=== PATIENT | male | born 1945 | race Hispanic/Latino ===

== ENCOUNTER 2019-01-21 12:30 | Emergency (ER) | payer OTHER ==
[2019-01-21] MEDS ORDERED: KETOROLAC TROMETHAMINE 15MG/ML ONE (13:24)
[2019-01-21] MEDS ORDERED: DIAZEPAM 5 MG TABLET ONE (13:24)
[2019-01-21] MEDS ORDERED: LIDOCAINE 5% TOPICAL PATCH TP ONE (13:24)
[2019-01-21 13:45] LABS: BASOPHILS % (AUTO) 0.9 % (0.0-5.0); EOSINOPHILS % (AUTO) 1.2 % (0.0-8.0); HEMATOCRIT 47.8 % (42-54); LYMPHOCYTES % (AUTO) 16.9 % (21.0-51.0); MEAN CORPUSCULAR HEMOGLOBIN 32.7 pg (27.0-33.0); MEAN CORPUSCULAR VOLUME 96.2 fL (79-99); MONOCYTES % (AUTO) 4.8 % (3.0-13.0); NEUTROPHILS % (AUTO) 76.2 % (40.0-77.0); PLATELET COUNT (AUTO) 250 K/uL (130-400); RED BLOOD CELL COUNT(AUTO) 4.97 MIL/uL (4.50-6.20); WHITE BLOOD COUNT (AUTO) 5.9 K/uL (4.8-10.8)
[2019-01-21 13:57] LABS: INR 0.96 (0.85-1.15); PARTIAL THROMBOPLASTIN TIME 27.9 SEC (26.3-35.5); PROTHROMBIN TIME 10.1 SEC (9.6-11.6)
[2019-01-21 14:02] LABS: ALBUMIN 4.2 g/dL (3.5-5.0); BILIRUBIN,TOTAL 0.7 mg/dL (0.2-1.0); CREATININE 1.2 mg/dL (0.5-1.5); POTASSIUM 4.3 mmol/L (3.5-5.1)
[2019-01-21 14:36] LABS: APPEARANCE,URINE Clear (CLEAR); BILIRUBIN,URINE Negative (NEGATIVE); COLOR,URINE Yellow (YELLOW); GLUCOSE, URINE (UA) Negative (NEGATIVE); KETONES,URINE 15 mg/dL (NEGATIVE); LEUKOCYTE ESTERASE ,URINE Negative (NEGATIVE); NITRATE,URINE Negative (NEGATIVE); OCCULT BLOOD,URINE Negative (NEGATIVE); PH,URINE 5.5 (5.0-8.0); PROTEIN,URINE Negative (NEGATIVE)
[2019-01-21 14:50] LABS: BACTERIA,URINE Few /HPF (None Seen); MUCUS,URINE Many LPF (None Seen)
== END 2019-01-21 14:34 | disposition home or self-care (01) ==
LOC: EDH 12:30
DX: M54.16 Radiculopathy, lumbar region (principal); F43.10 Post-traumatic stress disorder, unspecified; Z87.891 Personal history of nicotine dependence
CPT/HCPCS: 36415; 74176; 80053; 81001; 82550; 84484; 85025; 85610; 85730; 96374; 99285; J1885

== ENCOUNTER 2019-10-30 17:32 | Inpatient (IN) | payer OTHER ==
[~2019-10-30] VITALS: Ht 165.1 cm; Wt 80.2 kg
[2019-10-30] VITALS (9 sets, daily range): BP systolic 117–145; BP diastolic 83–100
[2019-10-30] MEDS ORDERED: ASPIRIN 325 MG TABLET ONE (17:47)
[2019-10-30 17:58] LABS: BASOPHILS % (AUTO) 0.4 % (0.0-5.0); EOSINOPHILS % (AUTO) 1.1 % (0.0-8.0); HEMATOCRIT 47.2 % (42-54); LYMPHOCYTES % (AUTO) 28.1 % (21.0-51.0); MEAN CORPUSCULAR HEMOGLOBIN 30.5 pg (27.0-33.0); MEAN CORPUSCULAR HGB CONC 33.3 g/dL (32.0-36.0); MEAN CORPUSCULAR VOLUME 91.8 fL (79-99); MONOCYTES % (AUTO) 12.6 % (3.0-13.0); NEUTROPHILS % (AUTO) 57.4 % (40.0-77.0); PLATELET COUNT (AUTO) 422 K/uL (130-400); RED BLOOD CELL COUNT(AUTO) 5.14 MIL/uL (4.50-6.20); RED CELL DISTRIBUTION WIDTH 12.8 % (11.0-15.5); WHITE BLOOD COUNT (AUTO) 8.1 K/uL (4.8-10.8)
[2019-10-30] MEDS ORDERED: TICAGRELOR 90 MG TABLET ONE (18:06)
[2019-10-30] MEDS ORDERED: HEPARIN SODIUM 5000UNIT/ML 1ML VIAL ONE (18:06)
[2019-10-30 18:09] LABS: CREATININE 1.1 mg/dL (0.5-1.5); POTASSIUM 3.4 mmol/L (3.5-5.1)
[2019-10-30 18:12] LABS: INR 0.97 (0.85-1.15); PARTIAL THROMBOPLASTIN TIME 26.3 SEC (26.3-35.5); PROTHROMBIN TIME 10.5 SEC (9.6-11.6)
[2019-10-30 18:13] LABS: ALBUMIN 2.8 g/dL (3.5-5.0); BILIRUBIN,TOTAL 0.6 mg/dL (0.2-1.0); TOTAL PROTEIN, SERUM 8.2 g/dL (6.0-8.3)
[2019-10-30] MEDS ORDERED: HEPARIN SODIUM 1000UNIT/ML 10ML VIAL ONE (18:13)
[2019-10-30] MEDS ORDERED: NITROGLYCERIN 2 MG/VIAL VIAL IV ONE (18:13)
[2019-10-30] MEDS ORDERED: LIDOCAINE PF 2% 5ML ABBOJECT ONE (18:13)
[2019-10-30] MEDS ORDERED: NICARDIPINE HCL 25 MG/10 ML ML IV ONE (18:13)
[2019-10-30] MEDS ORDERED: ATROPINE SULFATE 0.1 MG/ML 10 ML SYG IVP ONE (18:13)
[2019-10-30] MEDS ORDERED: FENTANYL CITRATE PF 50 MCG/1 ML 2ML VIAL ONE (18:14)
[2019-10-30] MEDS ORDERED: DOPAMINE HCL 400 MG/D5%-WATER 0 ML IV ONE (18:14)
[2019-10-30] MEDS ORDERED: MIDAZOLAM HCL 1 MG/ML 2ML VIAL ONE (18:14)
[2019-10-30] MEDS ORDERED: LIDOCAINE HCL 2% 20ML ONE (18:14)
[2019-10-30] MEDS ORDERED: IOHEXOL 350 MG/ML 100ML INFUS..BTL IV ONE (18:14)
[2019-10-30 18:46] LABS: B-TYPE NATRIURETIC PEPTIDE 44 pg/mL (0-100)
[2019-10-30] MEDS ORDERED: EPTIFIBATIDE 2 MG/ML 10 ML VIAL IVP ONE (18:52)
[2019-10-30] MEDS ORDERED: METOPROLOL TARTRATE 25 MG TAB PO SCH (21:00)
[2019-10-30] MEDS: ATORVASTATIN CALCIUM 40 MG TABLET PO SCH (21:01)
[2019-10-30] MEDS: TICAGRELOR 90 MG TABLET PO SCH (21:02)
[2019-10-30] MEDS ORDERED: POTASSIUM CHLORIDE 20 MEQ ERTAB PO ONE (21:20)
[2019-10-30] MEDS: POTASSIUM CHLORIDE 20 MEQ ERTAB PO SCH (21:30)
[2019-10-30] MEDS ORDERED: ONDANSETRON HCL 4 MG/2 ML VIAL IV PRN (22:15)
[2019-10-30] MEDS ORDERED: ACETAMINOPHEN 325 MG TAB PO PRN ×2 (22:15)
[2019-10-30] MEDS ORDERED: ERGOCALCIFEROL (VITAMIN D2) 50,000 UNIT CAPSULE PO ONE (22:15)
[2019-10-30] MEDS ORDERED: TEMAZEPAM 7.5 MG CAPSULE PO ONE ×2 (23:00→23:02)
[2019-10-31] VITALS (19 sets, daily range): BP systolic 105–138; BP diastolic 70–94
[2019-10-31 04:53] LABS: HEMATOCRIT 45.2 % (42-54); MEAN CORPUSCULAR HGB CONC 33.2 g/dL (32.0-36.0); MEAN CORPUSCULAR VOLUME 93.4 fL (79-99); RED BLOOD CELL COUNT(AUTO) 4.84 MIL/uL (4.50-6.20); RED CELL DISTRIBUTION WIDTH 13.1 % (11.0-15.5); WHITE BLOOD COUNT (AUTO) 7.9 K/uL (4.8-10.8)
[2019-10-31 05:35] LABS: CREATININE 0.9 mg/dL (0.5-1.5)
[2019-10-31] MEDS ORDERED: METOPROLOL TARTRATE 1 MG/ML 5ML VIAL IV ONE (05:52)
[2019-10-31] MEDS ORDERED: METOPROLOL TARTRATE 1 MG/ML 5ML VIAL IV SCH (06:00)
[2019-10-31] MEDS: ASCORBIC ACID 500 MG TAB PO SCH (07:39)
[2019-10-31] MEDS: FAMOTIDINE/PF 20 MG/2 ML VIAL IV SCH ×2 (07:39→22:18)
[2019-10-31] MEDS: ASPIRIN 81MG TAB.CHEW PO SCH (07:40)
[2019-10-31] MEDS: TICAGRELOR 90 MG TABLET PO SCH ×2 (07:40→22:18)
[2019-10-31] MEDS: ZINC SULFATE 220 CAPSULE PO SCH (07:40)
[2019-10-31] MEDS ORDERED: METOPROLOL TARTRATE 25 MG TAB PO SCH (09:00)
[2019-10-31] MEDS: POTASSIUM CHLORIDE 20 MEQ ERTAB PO SCH (21:30)
[2019-10-31] MEDS: METOPROLOL TARTRATE 50 MG TAB PO SCH (22:18)
[2019-10-31] MEDS: ATORVASTATIN CALCIUM 40 MG TABLET PO SCH (22:18)
[2019-11-01] VITALS: BP 106/56
[2019-11-01 04:15] VITALS: BP 106/67
[2019-11-01] MEDS ORDERED: TICA90TA PO (07:15)
[2019-11-01] MEDS ORDERED: METO50 PO (07:15)
[2019-11-01] MEDS ORDERED: ATOR40TA69 PO (07:15)
[2019-11-01] MEDS ORDERED: ASPI-1005 PO (07:15)
[2019-11-01] MEDS ORDERED: LOSA25TA41 PO (07:27)
[2019-11-01 07:50] VITALS: BP 119/82
[2019-11-01] MEDS: TICAGRELOR 90 MG TABLET PO SCH (09:15)
[2019-11-01] MEDS: METOPROLOL TARTRATE 50 MG TAB PO SCH (09:15)
[2019-11-01] MEDS: ASPIRIN 81MG TAB.CHEW PO SCH (09:15)
[2019-11-01] MEDS: ASCORBIC ACID 500 MG TAB PO SCH (09:15)
[2019-11-01] MEDS: ZINC SULFATE 220 CAPSULE PO SCH (09:16)
[2019-11-01] MEDS: FAMOTIDINE/PF 20 MG/2 ML VIAL IV SCH ×2 (09:20→09:26)
== END 2019-11-01 10:00 | disposition home or self-care (01) | DRG 246 ==
LOC: EDH 17:32 → EDHIP 20:15 → DAHIP 21:28
PROVIDERS: ADMIT Family Medicine; ATTEND Family Medicine
PROC: 027034Z Dilation of Coronary Artery, One Artery with Drug-eluting Intraluminal Device, Percutaneous Approach (ICD-10-PCS; principal; 2019-10-30)
PROC: 02C03ZZ Extirpation of Matter from Coronary Artery, One Artery, Percutaneous Approach (ICD-10-PCS; 2019-10-30)
PROC: 4A023N7 Measurement of Cardiac Sampling and Pressure, Left Heart, Percutaneous Approach (ICD-10-PCS; 2019-10-30)
PROC: B2111ZZ Fluoroscopy of Multiple Coronary Arteries using Low Osmolar Contrast (ICD-10-PCS; 2019-10-30)
DX: I21.09 ST elevation (STEMI) myocardial infarction involving other coronary artery of anterior wall (principal); U07.1 COVID-19; I50.21 Acute systolic (congestive) heart failure; E78.5 Hyperlipidemia, unspecified; E11.9 Type 2 diabetes mellitus without complications; F41.9 Anxiety disorder, unspecified; I25.5 Ischemic cardiomyopathy; I11.0 Hypertensive heart disease with heart failure; Z98.61 Coronary angioplasty status; Z80.9 Family history of malignant neoplasm, unspecified; Z83.3 Family history of diabetes mellitus; Z82.49 Family history of ischemic heart disease and other diseases of the circulatory system
CPT/HCPCS: 36415; 71045; 80048; 80053; 80061; 82550; 82728; 83615; 83880; 84484; 85025; 85027; 85347; 85610; 85730; 87486; 87581; 87633; 87798; 93005; 93306; 93454; 99156; 99157; 99291; C1725; C1887; C1894; C9606; G0378; J0461; J1265; J1327; J1644; J2001; J2250; J3010; J3490; Q9967; U0003

== ENCOUNTER 2020-01-19 20:02 | Observation (INO) | payer OTHER ==
[~2020-01-19 20:02] MED LIST: ASPI-1005 PO; ASPIRIN 325 MG TABLET ONE; ATOR40TA69 PO; LOSA25TA41 PO; METO50 PO; TICA90TA PO
[2020-01-19] MEDS ORDERED: ASPIRIN 325 MG TABLET ONE (20:14)
[2020-01-19] MEDS ORDERED: NITROGLYCERIN 0.4 MG SL TAB SL ONE (20:14)
[2020-01-19 20:17] LABS: BASOPHILS % (AUTO) 0.7 % (0.0-5.0); LYMPHOCYTES % (AUTO) 11.6 % (21.0-51.0); MEAN CORPUSCULAR HEMOGLOBIN 31.6 pg (27.0-33.0); MEAN CORPUSCULAR HGB CONC 32.6 g/dL (32.0-36.0); MEAN CORPUSCULAR VOLUME 97.1 fL (79-99); MONOCYTES % (AUTO) 4.4 % (3.0-13.0); PLATELET COUNT (AUTO) 245 K/uL (130-400); RED BLOOD CELL COUNT(AUTO) 4.43 MIL/uL (4.50-6.20); RED CELL DISTRIBUTION WIDTH 14.4 % (11.0-15.5); WHITE BLOOD COUNT (AUTO) 10.4 K/uL (4.8-10.8)
[2020-01-19 20:30] LABS: INR 0.92 (0.85-1.15); PARTIAL THROMBOPLASTIN TIME 26.1 SEC (26.3-35.5)
[2020-01-19 20:31] LABS: CREATININE 1.3 mg/dL (0.5-1.5); POTASSIUM 3.8 mmol/L (3.5-5.1)
[2020-01-19 20:35] LABS: ALBUMIN 3.7 g/dL (3.5-5.0); BILIRUBIN,TOTAL 0.5 mg/dL (0.2-1.0)
[2020-01-19] MEDS ORDERED: LIDOCAINE HCL 2% VISCOUS 15 ML UDCUP ONE (20:51)
[2020-01-19] MEDS ORDERED: MAG HYDROX/AL HYDROX/SIMETH ES 30 ML SUSP UDCUP ONE (20:52)
[2020-01-19] MEDS ORDERED: MAG HYDROX/AL HYDROX/SIMETH ES 30 ML SUSP UDCUP PO PRN (22:15)
[2020-01-19] MEDS ORDERED: ONDANSETRON HCL 4 MG/2 ML VIAL IV PRN (22:15)
[2020-01-19] MEDS ORDERED: LACTULOSE 20 GM/30 ML UDCUP PO PRN (22:15)
[2020-01-19] MEDS ORDERED: NITROGLYCERIN 0.4 MG SL TAB SL PRN (22:15)
[2020-01-19] MEDS ORDERED: ACETAMINOPHEN 325 MG TAB PO PRN ×2 (22:15)
[2020-01-19 22:42] LABS: THYROID STIMULATING HORMONE 4.44 uIU/mL (0.36-3.74)
[2020-01-20 03:15] LABS: CREATININE 1.2 mg/dL (0.5-1.5); POTASSIUM 3.8 mmol/L (3.5-5.1)
[2020-01-20 03:39] LABS: BASOPHILS % (AUTO) 0.4 % (0.0-5.0); EOSINOPHILS % (AUTO) 0.3 % (0.0-8.0); HEMATOCRIT 40.2 % (42-54); LYMPHOCYTES % (AUTO) 10.4 % (21.0-51.0); MEAN CORPUSCULAR HGB CONC 33.1 g/dL (32.0-36.0); MEAN CORPUSCULAR VOLUME 96.6 fL (79-99); MONOCYTES % (AUTO) 5.2 % (3.0-13.0); NEUTROPHILS % (AUTO) 83.5 % (40.0-77.0); PLATELET COUNT (AUTO) 224 K/uL (130-400); RED BLOOD CELL COUNT(AUTO) 4.16 MIL/uL (4.50-6.20); RED CELL DISTRIBUTION WIDTH 14.2 % (11.0-15.5); WHITE BLOOD COUNT (AUTO) 10.4 K/uL (4.8-10.8)
[2020-01-20] MEDS ORDERED: ASPIRIN 81MG TAB.CHEW ONE (07:19)
[2020-01-20] MEDS ORDERED: FAMOTIDINE 20MG TAB 20 MG TAB ONE (07:19)
[2020-01-20] MEDS ORDERED: METOPROLOL TARTRATE 25 MG TAB ONE (07:20)
[2020-01-20] MEDS ORDERED: METOPROLOL TARTRATE 25 MG TAB PO SCH (09:00)
[2020-01-20] MEDS ORDERED: FAMOTIDINE 20MG TAB 20 MG TAB PO SCH (09:00)
[2020-01-20] MEDS ORDERED: ASPIRIN 325 MG TABLET PO SCH (09:00)
[2020-01-20] MEDS ORDERED: TICAGRELOR 90 MG TABLET PO SCH (10:00)
[2020-01-20] MEDS ORDERED: TICAGRELOR 90 MG TABLET ONE (10:03)
[2020-01-20] MEDS ORDERED: ATORVASTATIN CALCIUM 20 MG TABLET PO SCH (21:00)
== END 2020-01-20 16:27 | disposition home or self-care (01) ==
LOC: EDH 20:02 → EDHIP 22:07 → INTOOBSV 22:07 → OBSVTOIN 22:07
PROVIDERS: ADMIT Internal Medicine; ATTEND Internal Medicine
DX: R07.2 Precordial pain (principal); I11.0 Hypertensive heart disease with heart failure; I50.21 Acute systolic (congestive) heart failure; I25.5 Ischemic cardiomyopathy; I25.2 Old myocardial infarction; I25.10 Atherosclerotic heart disease of native coronary artery without angina pectoris; E78.5 Hyperlipidemia, unspecified; F41.9 Anxiety disorder, unspecified; Z79.02 Long term (current) use of antithrombotics/antiplatelets; Z79.899 Other long term (current) drug therapy; Z79.82 Long term (current) use of aspirin; Z87.01 Personal history of pneumonia (recurrent); Z95.5 Presence of coronary angioplasty implant and graft; Z87.891 Personal history of nicotine dependence
CPT/HCPCS: 36415 ×2; 71045; 80048; 80053; 80061; 82550; 83690; 84439; 84443; 84481; 84484 ×3; 85025 ×2; 85610; 85730; 93005 ×4; 99285; G0378 ×3

== ENCOUNTER → 2021-02-15 | Outpatient (CLI) | payer OTHER ==
[~2021-02-15] MED LIST changes: -ASPIRIN 325 MG TABLET ONE
== END | disposition home or self-care (01) ==
LOC: SHCH 14:26
PROVIDERS: ATTEND Internal Medicine Cardiovascular Disease
DX: I08.3 Combined rheumatic disorders of mitral, aortic and tricuspid valves (principal); E78.5 Hyperlipidemia, unspecified; E66.9 Obesity, unspecified
CPT/HCPCS: 93306; 93356

== ENCOUNTER → 2021-02-19 | Outpatient (CLI) | payer OTHER ==
[~2021-02-19] VITALS: Ht 165.1 cm; Wt 85.7 kg
[~2021-02-19] MED LIST changes: +REGADENOSON 0.4 MG/5 ML PF SYG IVP SCH
== END | disposition home or self-care (01) ==
LOC: SHCH 08:28
PROVIDERS: ATTEND Internal Medicine Cardiovascular Disease
DX: I25.10 Atherosclerotic heart disease of native coronary artery without angina pectoris (principal); I47.2 Ventricular tachycardia
CPT/HCPCS: 78452; 93017; 96374; A9500 ×2; J2785